=== PATIENT | female | born 1965 | race Caucasian/White ===

== ENCOUNTER → 2016-09-10 | Day surgery (SDC) | payer BC ==
--- NOTE | 2016-09-02 03:48 | HP ---
PREOPERATIVE HISTORY AND PHYSICAL: DATE OF ADMISSION/SURGERY: 09/10/16 [facility] ATTENDING SURGEON: Emma Posada MD PROCEDURE: Left wrist carpal tunnel release, ulnar nerve decompression at the elbow. HISTORY OF PRESENT ILLNESS: This is a 50-year-old female who complains of bilateral numbness and tingling in her hands, worse on the left than in the right. The numbness and tingling involved all of her fingers on the left and just the radial three fingers on the right. She has had a nerve conduction/EMG study performed by Dr. Young in July of 2016 and results showed bilateral carpal tunnel syndrome with left ulnar motor slowing across the elbow. The patient reports her symptoms are aggravated by repetitive gripping and lifting. She is interested in surgical intervention at this time to alleviate her symptoms and has consented to proceed with a left wrist carpal tunnel release and an ulnar nerve decompression at the elbow. PAST MEDICAL HISTORY: 1. Gastritis. 2. Anxiety. PAST SURGICAL HISTORY: 1. Cholecystectomy. 2. Tubal ligation. MEDICATIONS: 1. Lorazepam 0.5 mg daily. 2. Oxybutynin chloride ER 10 mg daily. 3. Pantoprazole sodium 40 mg daily. 4. Sucralfate 1 g daily. 5. Multivitamin daily. 6. Magnesium daily. ALLERGIES: SULFA and NEOMYCIN, both cause rash/hives. FAMILY MEDICAL HISTORY: Significant for diabetes. SOCIAL HISTORY: The patient is employed at the [employer] in the [employer]. She is a smoker, admits to smoking approximately 5 cigarettes per day and has done so for the past 35 years. She denies recreational drug use. She denies alcohol use. REVIEW OF SYSTEMS: General: Negative for fevers, chills, or night sweats. No known anesthesia problems. HEENT: Negative for headache, lightheadedness, or syncopal episodes. Integumentary: Negative for abrasions, lesions, or open wounds. Cardiothoracic: Negative for chest pain, palpitations, edema, and hypertension. Pulmonary: Negative for shortness of breath with exertion, chronic cough, or COPD. GI: Positive for gastritis and associated nausea and constipation. : Negative for nocturia, urinary frequency, urgency, history of UTIs, or kidney problems. Musculoskeletal: Positive for current complaint. Negative for chronic or intermittent back pain or history of fractures. Neurological: Negative for history of seizure, stroke, or epilepsy. Endocrine : Negative for diabetes and thyroid issues. Hematologic: Negative for easy bruising, anemia, excessive bleeding, or history of DVT. Infectious Disease: Negative for history of MRSA, hepatitis C, or HIV. PHYSICAL EXAMINATION GENERAL: Well-developed, well-nourished, 50-year-old female, in no acute distress. VITAL SIGNS: Height 5 feet 4 inches, weight 108 pounds, pulse rate 69, blood pressure 108/72. HEENT: Normocephalic, atraumatic. Pupils are equal, round, and reactive to light and accommodation. Extraocular movements are intact. NECK: Supple. No palpable lymph nodes. Throat is clear. PULMONARY: Lungs are clear to auscultation bilaterally. No wheezes, rales, or rhonchi. CARDIOTHORACIC: Regular rate and rhythm. S1, S2. No murmurs, rubs, or gallops. No edema. ABDOMEN: Positive bowel sounds, soft, and nontender. MUSCULOSKELETAL: On exam of bilateral upper extremities, there is some mild thenar interosseus wasting, more significant on the left than on the right. There is weakness with finger abduction and thumb abduction. She has positive Tinel's sign of the ulnar nerve at the elbow on the left and at the median nerve in both hands. She can flex and extend her fingers well. She has normal wrist motion and normal elbow motion. Sensation is intact to light touch. NEUROLOGIC: Alert and oriented x3. Cranial nerves II through XII are intact. Sensation is intact to light touch. DIAGNOSTIC STUDIES: Imaging studies: EMG/nerve conduction study showed borderline carpal tunnel syndrome on the right, mild on the left with left ulnar motor slowing across the elbow. IMPRESSION: Bilateral carpal tunnel syndrome with left ulnar neuropathy at the elbow. PLAN: The patient is scheduled for a left wrist carpal tunnel release and left ulnar nerve decompression at the elbow with Dr. Posada on 09/10/16. She will return to the office 10 to 14 days postop for followup and suture removal. A prescription for [place] was e-scribed to the patient's pharmacy for postoperative pain management. RITESH BEGUM [id number]/[facility] #: [id number] MTDD
[~2016-09-10] MED LIST: Acetaminophen TAB* 325 MG PO PRN; Buffered Lidocaine 1% SYR 3ML* 3 ML/SYR SYRINGE INTRADERM ONE; Dexamethasone IV* 4 MG/ML 1 ML (4 MG) ONE; DiMENhydriNATE IV* 50 MG/ML VIAL IV PUSH PRN; EPHEDrine (Pressors)* 50 MG/ML VIAL ONE; Famotidine IV* 10 MG/ML 2 ML (20 mg) IV ONE; Famotidine IV* 10 MG/ML 2 ML (20 mg) ONE; Ketorolac INJ* 30 MG/ML 1 ML VIAL ONE; Lidocaine 1% INJ* 10 MG/ML 30 ML SDV ONE; Lidocaine 2% PF * 5 ML VIAL ONE; Midazolam* 1 MG/ML 5 ML VIAL (5 MG) ONE; Ondansetron INJ* 2 MG/ML VIAL ONE; Propofol* 10 MG/ML 20 ML BTL IV PUSH ONE; ceFAZolin 2 GM PREMIX (*) 2 GM/50 ML BAG IVPB ONE; fentaNYL* 50 MCG/ML 2 ML VIAL (100 MCG VIAL) ONE; oxyCODONE/Acetamin 5/325 MG* TAB PO PRN
[2016-09-10 09:05] VITALS: BP 110/86
--- NOTE | 2016-09-11 15:18 | OP ---
DATE OF OPERATION: 09/10/16 - [facility] DATE OF : 65 SURGEON: Emma Posada MD. FIGURE SKATER: RITESH Vail. ANESTHESIOLOGIST: Mari Ang MD ANESTHESIA: General. PRE-OP DIAGNOSES: Left carpal tunnel syndrome and left ulnar nerve compression at the elbow. POST-OP DIAGNOSES: Left carpal tunnel syndrome and left ulnar nerve compression at the elbow. OPERATIVE PROCEDURE: Left ulnar nerve decompression of the elbow and left carpal tunnel release. ESTIMATED BLOOD LOSS: Zero. TOURNIQUET TIME: About 30 minutes. INDICATION FOR PROCEDURE: Maria Dolores is a 50-year-old woman who has numbness and tingling in her left hand. Nerve conduction study shows ulnar nerve compression at the elbow and median nerve compression at the wrist. She presents for ulnar nerve decompression at the elbow and median nerve decompression at the wrist. DESCRIPTION OF PROCEDURE: The patient was brought to the operating room and was given a general anesthetic and placed in the supine position on the operating table with a tourniquet around her left upper arm. Skin of her left upper extremity was prepped and draped in the usual sterile fashion. The upper extremity was exsanguinated and the tourniquet elevated to 250 mmHg. A longitudinal incision was made in the palm in line with the ring finger. We dissected sharply through the subcutaneous tissue down to the transverse carpal ligament. The ligament was divided sharply with the knife and then more proximally with the scissors. The nerve was dissected free from the surrounding tissue, and there was an area of moderate compression at the mid portion of the ligament. The wound was irrigated and the skin edge reapproximated with 4-0 nylon suture. Next, a curvilinear incision was made centered between the medial epicondyle and the tip of the olecranon process. We dissected sharply down to the ulnar nerve proximally, which was then carefully dissected out proximally and distally. Sensory branch of the medial antebrachial cutaneous nerve was preserved. The main compression appeared to be at the cubital tunnel. The FCU fascia deep and superficial was completely divided and the medial intermuscular septum was divided as well. The wound was irrigated and the subcutaneous tissues reapproximated with 2-0 Polysorb and the skin with skin hanny. The wound was dressed with Xeroform, 4x4, Webril, and an Jerardo wrap. The patient tolerated the procedure well and was brought to the recovery room in good condition. [id number]/[facility] #: [id number] OLMAN
== END | disposition home or self-care (01) ==
LOC: OREAST 06:33
PROVIDERS: ATTEND Orthopaedic Surgery
DX: G56.02 Carpal tunnel syndrome, left upper limb (principal); G56.22 Lesion of ulnar nerve, left upper limb; F17.210 Nicotine dependence, cigarettes, uncomplicated
CPT/HCPCS: J0690; J1100; J1885; J2250; J2405; J2704; J3010

== ENCOUNTER → 2016-10-29 06:34 | Day surgery (SDC) | payer BC ==
--- NOTE | 2016-10-03 22:06 | HP ---
PREOPERATIVE HISTORY AND PHYSICAL EXAM: DATE OF OFFICE VISIT/ENCOUNTER: 10/03/16 DATE OF SURGERY/ADMISSION: 10/29/16 [facility] ATTENDING SURGEON: Emma Posada MD PROCEDURE: Right carpal tunnel release. CHIEF COMPLAINT: Numbness and tingling, right hand. HISTORY OF PRESENT ILLNESS: This is a 51-year-old female who complains of numbness and tingling in her right hand, thumb, index, and middle fingers. She has had a nerve conduction EMG study performed by Dr. Young in July that shows carpal tunnel syndrome on the right. The patient reports her symptoms are aggravated by repetitive gripping and lifting. She is interested in surgical intervention at this time to alleviate her symptoms and has consented to proceed with a right wrist carpal tunnel release. The patient recently has undergone a left wrist carpal tunnel release and has done very well with that. PAST MEDICAL HISTORY: 1. Gastritis. 2. Anxiety. PAST SURGICAL HISTORY: 1. Cholecystectomy. 2. Tubal ligation. 3. Left carpal tunnel release/ulnar nerve decompression at the elbow. MEDICATIONS: 1. Lorazepam 0.5 mg daily. 2. Oxybutynin chloride ER 10 mg daily. 3. Pantoprazole sodium 40 mg daily. 4. Sucralfate 1 g daily. 5. Multivitamin daily. 6. Magnesium daily. ALLERGIES: SULFA and NEOMYCIN, both cause rash and hives. FAMILY MEDICAL HISTORY: Diabetes. SOCIAL HISTORY: The patient is employed at [employer] in [employer]. She is a smoker. Admits to smoking approximately 5 cigarettes per day and has done so for the past 35 years. She denies recreational drug use. She denies alcohol use. REVIEW OF SYSTEMS: General: Negative for fevers, chills, or night sweats. No known anesthesia problems in the past. HEENT: Negative for headache, lightheadedness, or syncopal episodes. Integumentary: Negative for abrasions, lesions, or open wounds. Cardiothoracic: Negative for chest pain, palpitations , edema, or hypertension. Pulmonary: Negative for shortness of breath with exertion, chronic cough, or COPD. GI: Positive for gastritis and associated nausea and constipation. : Negative for nocturia, urinary frequency, urgency , history of UTIs, or kidney problems. Musculoskeletal: Positive for current complaint. Negative for chronic or intermittent back pain or history of fractures. Neurological: Negative for history of seizure, stroke, or epilepsy. Endocrine: Negative for diabetes or thyroid issues. Hematologic: Negative for easy bruising, anemia, excessive bleeding, or history of DVT. Infectious Disease: Negative for history of MRSA, hepatitis C, or HIV. PHYSICAL EXAMINATION GENERAL: A well-developed, well-nourished, 50-year-old female, in no acute distress. VITAL SIGNS: Height 5 feet 4-1/2 inches, weight 108 pounds, pulse rate 59, and blood pressure 120/70. HEENT: Normocephalic, atraumatic. Pupils are equal, round, reactive to light and accommodation. Extraocular movements are intact. NECK: Supple. No palpable lymph nodes. Throat is clear. PULMONARY: Lungs are clear to auscultation bilaterally. No wheezes, rales, or rhonchi. CARDIOTHORACIC: Regular rate and rhythm. S1, S2. No murmurs, rubs, or gallops. No edema. ABDOMEN: Positive bowel sounds. Soft, nontender. MUSCULOSKELETAL: On exam of the right upper extremity, there is weakness with thumb abduction. No visible thenar atrophy is noted. She has a positive Tinel' s sign at the median nerve on the right. She has full flexion and extension of her fingers and normal wrist motion as well. Sensation is intact to light touch. NEUROLOGICAL: Alert and oriented x3. Cranial nerves II through XII are intact. Sensation is intact to light touch. DIAGNOSTIC STUDIES/LAB DATA: EMG nerve conduction study shows borderline carpal tunnel syndrome on the right. IMPRESSION: Right carpal tunnel syndrome. PLAN/RECOMMENDATIONS: The patient is scheduled to undergo right carpal tunnel release with Dr. Posada on 10/29/16. She will return to the office in 10 to 14 days postop for followup and suture removal. A prescription for Ultracet was e-scribed to the patient's pharmacy for postoperative pain management. RITESH BEGUM [id number]/[facility] #: [id number] OLMAN
[~2016-10-29 06:34] MED LIST changes: -Acetaminophen TAB* 325 MG PO PRN; -Buffered Lidocaine 1% SYR 3ML* 3 ML/SYR SYRINGE INTRADERM ONE; +Buffered Lidocaine 1% SYRIN* 3 ML/SYR SYRINGE INTRADERM ONE; -Dexamethasone IV* 4 MG/ML 1 ML (4 MG) ONE; -DiMENhydriNATE IV* 50 MG/ML VIAL IV PUSH PRN; -EPHEDrine (Pressors)* 50 MG/ML VIAL ONE; -Famotidine IV* 10 MG/ML 2 ML (20 mg) IV ONE; -Famotidine IV* 10 MG/ML 2 ML (20 mg) ONE; -Ketorolac INJ* 30 MG/ML 1 ML VIAL ONE; -Lidocaine 2% PF * 5 ML VIAL ONE; +Midazolam* 1 MG/ML 2 ML VIAL (2 MG) ONE; -Midazolam* 1 MG/ML 5 ML VIAL (5 MG) ONE; +Ondansetron INJ* 2 MG/ML VIAL IV PRN; -Ondansetron INJ* 2 MG/ML VIAL ONE; -ceFAZolin 2 GM PREMIX (*) 2 GM/50 ML BAG IVPB ONE; +fentaNYL* 50 MCG/ML 2 ML VIAL (100 MCG VIAL) IV PRN; -oxyCODONE/Acetamin 5/325 MG* TAB PO PRN
[2016-10-29 08:24] VITALS: BP 96/63
--- NOTE | 2016-10-30 02:43 | OP ---
DATE OF OPERATION: 10/29/16 [facility] DATE OF : 65 SURGEON: Emma Posada MD ELECTRICIAN YARD: RITESH Vail. ANESTHESIOLOGIST: Juice Stanton MD ANESTHESIA: Local MAC. PRE-OP DIAGNOSIS: Right carpal tunnel syndrome. POST-OP DIAGNOSIS: Right carpal tunnel syndrome. OPERATIVE PROCEDURE: Right carpal tunnel release. INDICATIONS: Maria Dolores is a 51-year-old woman with numbness and tingling in the median nerve distribution of her right hand. She presents for right carpal tunnel release. ESTIMATED BLOOD LOSS: Zero. TOURNIQUET TIME: About 5 minutes. DESCRIPTION OF PROCEDURE: The patient was brought to the operating room and was given a sedation anesthetic and a local infiltration of 10 cc of 1% plain lidocaine. The skin of her right hand and forearm was prepped and draped in the usual sterile fashion. The hand and forearm were exsanguinated and the tourniquet elevated to 250 mmHg. A longitudinal incision was made in the palm in line with the ring finger. We dissected through the subcutaneous tissue down to the transverse carpal ligament. The ligament was divided sharply with a knife and then more proximally with the scissors. The nerve was dissected free from the surrounding tissue and there was an area of moderate compression at the mid portion of the ligament. The wound was irrigated and the skin edges reapproximated with 4-0 nylon suture. The wound was dressed with Xeroform, 4x4 , Webril, and an Jerardo wrap. The patient tolerated the procedure well and was brought to the recovery room in good condition. [id number]/[facility] #: [id number] [facility]
== END | disposition home or self-care (01) ==
LOC: OREAST 06:34
PROVIDERS: ATTEND Orthopaedic Surgery
DX: G56.01 Carpal tunnel syndrome, right upper limb (principal); F17.200 Nicotine dependence, unspecified, uncomplicated; K29.70 Gastritis, unspecified, without bleeding
CPT/HCPCS: J2001; J2250; J2704; J3010

== ENCOUNTER 2017-12-02 10:32 | Day surgery (SDC) | payer BC ==
--- NOTE | 2017-12-01 09:44 | HP ---
PREOPERATIVE HISTORY AND PHYSICAL: DATE OF ADMISSION: 12/02/17 PREOPERATIVE DIAGNOSIS: Trigger finger of the left ring finger. PROCEDURE TO BE PERFORMED: Left ring finger trigger release. HISTORY OF PRESENT ILLNESS: Maria Dolores is a 52-year-old woman whom I have treated in the past for carpal tunnel syndrome. She now has locking and catching of her left ringer that has been present for several weeks, it is very painful. Her finger stays locked for a few hours in the mornings. She presents for left ring finger trigger finger release. PAST MEDICAL HISTORY: Gastritis, anxiety, carpal tunnel syndrome and ulnar neuropathy. PAST SURGICAL HISTORY: Cholecystectomy, tubal ligation, bilateral carpal tunnel release and left ulnar nerve decompression at the elbow. CURRENT MEDICATIONS: 1. Lorazepam 0.5 mg p.o. p.r.n. 2. Oxybutynin chloride ER 10 mg p.o. daily. 3. Sucralfate 1 g p.o. daily. 4. Pantoprazole sodium 40 mg p.o. daily. ALLERGIES: To SULFA and NEOMYCIN which cause rash and hives FAMILY HISTORY: Significant for diabetes, otherwise negative. SOCIAL HISTORY: She works in a bakery. She is a smoker smokes about 5 cigarette a day for the past 35 years. She denies recreational drug use and alcohol use. REVIEW OF SYSTEMS: Positive for gastritis but otherwise negative for cephalic, cardiovascular, respiratory, gastrointestinal, genitourinary, other musculoskeletal, skin, neurologic, endocrine and hematologic symptoms. PHYSICAL EXAMINATION GENERAL: She is a healthy-appearing very pleasant female in no acute distress. VITAL SIGNS: She is 64.5 inches, weighs 108 pounds, pulse 70, blood pressure 108/62. HEENT: Unremarkable. She has good range of motion of her neck without pain. No masses are palpated. Her eye movements are concentric. LUNGS: Clear to auscultation. Good inspiratory effort. No wheezing. CARDIAC: Regular rate and rhythm without murmur. PERIPHERAL VASCULAR: She has palpable pulses and no peripheral edema. EXTREMITIES: She has tenderness at the A1 natalio of her left ring finger and it locks when she flexes her finger and makes a fist. NEUROLOGIC: She is alert and oriented without focal deficit. IMPRESSION: Left ring finger trigger finger. PLAN/RECOMMENDATIONS: Left ring finger trigger release. The surgical procedure , risks and benefits were explained to the patient today and she agrees to proceed. The patient will follow up for recheck in approximately 10 days postop. [id number]/[facility] #: [id number] MTDD
[~2017-12-02 10:32] MED LIST changes: +Buffered Lidocaine 0.9% SYRIN* 5 ML/SYR SYRINGE INTRADERM ONE; -Buffered Lidocaine 1% SYRIN* 3 ML/SYR SYRINGE INTRADERM ONE; -Lidocaine 1% INJ* 10 MG/ML 30 ML SDV ONE; -Midazolam* 1 MG/ML 2 ML VIAL (2 MG) ONE; -Ondansetron INJ* 2 MG/ML VIAL IV PRN; -Propofol* 10 MG/ML 20 ML BTL IV PUSH ONE; -fentaNYL* 50 MCG/ML 2 ML VIAL (100 MCG VIAL) IV PRN; -fentaNYL* 50 MCG/ML 2 ML VIAL (100 MCG VIAL) ONE
[2017-12-02] MEDS ORDERED: Lidocaine 1% INJ* 10 MG/ML 30 ML SDV ONE (11:15)
[2017-12-02] MEDS ORDERED: Naloxone* 0.4 MG/ML 1 ML VIAL IV PRN (11:32)
[2017-12-02] MEDS ORDERED: Midazolam* 1 MG/ML 2 ML VIAL (2 MG) ONE ×2 (11:56→11:59)
[2017-12-02] MEDS ORDERED: fentaNYL* 50 MCG/ML 2 ML VIAL (100 MCG VIAL) ONE (11:56)
[2017-12-02 12:51] VITALS: BP 98/67
--- NOTE | 2017-12-03 13:55 | OP ---
DATE OF OPERATION: 12/02/17 [facility] DATE OF : 65 SURGEON: Emma Posada MD. CIRCULATION WORKER: RITESH Vail. ANESTHESIA: Local MAC. PRE-OP DIAGNOSIS: Left ring finger trigger. POST-OP DIAGNOSIS: Left ring finger trigger. OPERATIVE PROCEDURE: Left ring finger trigger release. ESTIMATED BLOOD LOSS: Zero. TOURNIQUET TIME: 5 minutes. INDICATIONS FOR PROCEDURE: Maria Dolores is a 52-year-old female who has painful locking of her left ring finger. She presents for trigger release. DESCRIPTION OF PROCEDURE: The patient was brought to the operating room, was given a sedation anesthetic and a local infiltration of 10 cc of 1% plain lidocaine in the palm of her left hand. The skin of her left hand and forearm was prepped and draped in the usual sterile fashion. The hand and forearm were exsanguinated and the tourniquet elevated to 250 mmHg. A transverse incision was made centered over the A1 natalio of the left ring finger. We dissected bluntly through the subcutaneous tissue down to the A1 natalio. The natalio was incised longitudinally, completely releasing the flexor tendons, which were in good condition. There was abundant tenosynovitis surrounding the tendons and this was debrided. The wound was irrigated and the skin edges reapproximated with 4-0 nylon suture. The wound was dressed with Xeroform, 4x4, Webril and an Jerardo wrap. The patient tolerated the procedure well and was brought to the recovery room in good condition. [id number]/[facility] #: [id number] MTDD
== END 2017-12-02 12:46 | disposition home or self-care (01) ==
LOC: OREAST 10:32
PROVIDERS: ATTEND Orthopaedic Surgery
DX: M65.342 Trigger finger, left ring finger (principal); F41.9 Anxiety disorder, unspecified; F17.210 Nicotine dependence, cigarettes, uncomplicated; Z90.49 Acquired absence of other specified parts of digestive tract; Z88.1 Allergy status to other antibiotic agents; Z88.2 Allergy status to sulfonamides
CPT/HCPCS: J2250; J3010

== ENCOUNTER 2018-09-15 16:28 | Emergency (ER) | payer BC ==
[2018-09-15 16:46] VITALS: BP 81/50
--- NOTE | 2018-09-15 16:49 | UC ---
Bite Injury/Animal HPI - HPI Summary HPI Summary: 53 yo female presents with cat bite to RIGHT hand. She tells me that this morning she was petting her cat and the cat "freaked out" and bite her hand. She washed the area with soap and water, but since that time has had pain, swelling, and redness. Last tetanus was over 10 years ago. Cat is not UTD on vaccinations. - History of Current Complaint Chief Complaint: UCBiteInjury Stated Complaint: CAT BITE Time Seen by Provider: 09/15/18 16:48 Hx Obtained From: Patient Severity Currently: Mild Severity Initially: Mild Pain Intensity: 4 Pain Scale Used: 0-10 Numeric Onset/Duration: Sudden Onset Type of Bite: Animal Has Animal Been Immunized?: No Character: Puncture - Allergies/Home Medications Allergies/Adverse Reactions: Allergies Allergy/AdvReac Type Severity Reaction Status Date / Time neomycin Allergy Rash And Verified 09/15/18 16:46 Itching oxycodone Allergy Tachycardia Verified 12/02/17 10:54 Sulfa (Sulfonamide Allergy Rash Verified 09/15/18 16:46 Antibiotics) varenicline [From Chantix] Allergy Tachycardia Verified 12/02/17 10:54 Home Medications: Home Medications Mirabegron [Myrbetriq] 50 mg PO DAILY 09/15/18 [History Confirmed 09/15/18] PMH/Surg Hx/FS Hx/Imm Hx - Additional Past Medical History Additional PMH: Overactive bladder - Surgical History Surgical History: Yes Surgery Procedure, Year, and Place: gallbladder removed , 30 yrs ago. tubal litagation 1987. left carpal tunnel, repair left ulnar nerve, 08/2016, [facility] [place]. 11/11 RIGHT CARPAL TUNNEL REPAIR. LEFT ULNAR NERVE REPAIR [facility] [place] - Social History Lives: With Family Alcohol Use: None Substance Use Type: Marijuana Smoking Status (MU): Light Every Day Tobacco Smoker Type: Cigarettes Amount Used/How Often: 5 cigs per day Have You Smoked in the Last Year: Yes Review of Systems All Other Systems Reviewed And Are Negative: Yes Constitutional: Positive: Negative Skin: Positive: Other - cat bite right hand Respiratory: Positive: Negative Cardiovascular: Positive: Negative Neurovascular: Positive: Negative Musculoskeletal: Positive: Negative Neurological: Positive: Negative Psychological: Positive: Negative Physical Exam - Summary Physical Exam Summary: GENERAL: NAD. WDWN. No pain distress. SKIN: Overlying the right 5th MCP there is a 2mm puncture wound with 1.5cm of surround erythema and mild edema. TTP. Mildly warm. No discharge, streaking, or open wound. CHEST: No accessory muscle use. Breathing comfortably and in no distress. CV: Pulses intact. Cap refill <2seconds MSK: FROM of right 5th digit with mild pain during flexion. NEURO: Alert. PSYCH: Age appropriate behavior. Triage Information Reviewed: Yes Vital Signs: Initial Vital Signs Temp 98.1 F 09/15/18 16:42 Pulse 83 09/15/18 16:42 Resp 16 09/15/18 16:42 BP 81/50 09/15/18 16:42 Pulse Ox 100 09/15/18 16:42 Vital Signs Reviewed: Yes Bite Injury Course/Dx - Course Course Of Treatment: tdap updated today. Will start her with augmentin for cat bite. Advised to apply ice to the area to decrease pain and swelling. - Differential Dx/Diagnosis Provider Diagnosis: Cat bite of right hand Discharge - Sign-Out/Discharge Documenting (check all that apply): Patient Departure All imaging exams completed and their final reports reviewed: No Studies - Discharge Plan Condition: Stable Disposition: HOME Prescriptions: Amoxicillin/Clavulanate TAB* [Augmentin TAB 875*] 875 mg PO BID #14 tab Patient Education Materials: Animal Bite (ED) Referrals: Gina Lopez MD [Primary Care Provider] - Additional Instructions: If you develop a fever, shortness of breath, chest pain, new or worsening symptoms - please call your PCP or go to the ED. Apply ice to your hand to decrease pain and swelling - Billing Disposition and Condition Condition: STABLE Disposition: Home
[2018-09-15] MEDS ORDERED: Tetan/Diph/Pertus SYR(Tdap)* 0.5 ML SYR(BOOSTRIX) use SYR IM ONE (16:56)
== END 2018-09-15 17:17 | disposition home or self-care (01) ==
LOC: UCEAST 16:28
DX: S61.431A Puncture wound without foreign body of right hand, initial encounter (principal); W55.01XA Bitten by cat, initial encounter; Y92.9 Unspecified place or not applicable; Z23 Encounter for immunization; N32.81 Overactive bladder; Z88.3 Allergy status to other anti-infective agents; Z88.5 Allergy status to narcotic agent; Z88.2 Allergy status to sulfonamides; Z88.8 Allergy status to other drugs, medicaments and biological substances; F17.210 Nicotine dependence, cigarettes, uncomplicated
CPT/HCPCS: 90471; 90715; 99212; G0463